=== PATIENT | male | born 1965 | race Caucasian/White ===

== ENCOUNTER 2022-09-15 18:09 | Emergency (ER) | payer MEDICARE, SELFPAY ==
[2022-09-15] VITALS (43 sets, daily range): BP systolic 57–113; BP diastolic 29–77; PULSE 104–139; RESP 18–38; TEMP 37–38.1; O2SAT 82–98
--- NOTE | ~2022-09-15 | XR_ITS ---
EXAMINATION: XR chest 1V portable Exam Date/Time: 09/15/2022 18:35 SUSTAINABILITY PROJECT MANAGER HISTORY: congestion/COUGH X 1 WEEK Comparison: None available. RESULT: Lines, tubes, and devices: None. Lungs and pleura: Multifocal subsegmental foci of airspace disease in the left mid and lower lung. Cardiomediastinal silhouette: Unremarkable. Other: No acute osseous or upper abdominal finding. IMPRESSION: Findings suspicious for left mid/lower lung pneumonia. Reviewed, dictated and finalized at location K. AINABILITY PROJECT MANAGER
--- NOTE | ~2022-09-15 | CT_ITS ---
EXAMINATION: CT abdomen pelvis w con DATE: 09/15/2022 20:44 INDICATION: NONSPECIFIC ABD PAIN. TECHNIQUE: Computed tomography (CT) of the abdomen and pelvis was performed with 100 mL Omnipaque-350 intravenous contrast. Automated exposure control and iterative reconstruction technique were employe d. The dose-length product was 503.61 mGy-cm. COMPARISON: None. FINDINGS: Motion artifact in the upper abdomen. Lower thorax: Subsegmental areas of groundglass and consolidative opacities in the lingula and left l ower lobe. Liver: Normal. Biliary/Gallbladder: Gallbladder is absent. No bile duct dilation. Pancreas: No mass or duct dilation. Spleen: Normal. Large adjacent splenule. Adrenals:No mass. Kidneys: No mass, stone, or hydronephrosis. Mild bilateral atrophy. GI tract: Mild distal esophageal and gastric wall edema. Hyperdense wall thickening in multiple loops of proximal small bowel. General loss of haustration in the large bowel. Distal sigmoid and rectal w all hyperemia. No small or large bowel dilation. Normal appendix. Diverticulosis without diverticulit is. Mesentery/Peritoneum: No ascites, mass, or free air. Retroperitoneum: No mass. Pelvis: Mild bladder wall thickening. Right lateral ureterocele.. Soft Tissues: Soft tissues and body wall unremarkable. Bones: No acute osseous finding. IMPRESSION: Multifocal left lung pneumonia. No wall thickening and hyperemia as can be seen with acute inflammato ry bowel disease. Urinary bladder wall thickening may be secondary to cystitis or outlet compromise. Reviewed, dictated and finalized at location K. S REPRESENTATIVE MEATS IMPRESSION: Multifocal left lung pneumonia. No wall thickening and hyperemia as can be seen with acute inflammatory bowel disease. Urinary bladder wall thickening may be secondary to cystitis or outlet compromise.
[2022-09-15] MEDS: SODIUM CHLORIDE 0.9% IV 1,000 ML 999 ML IV CONT ×5 (18:45→22:30)
--- NOTE | 2022-09-15 19:30 | PC.NURSE ---
Care resumed, pt sitting and rocking in bed, anxious per report of pts sister who is at bedside. Pt is able to understand commands and will follow commands but is nonverbal. Pts BP is soft and he is currently receiving fluid boluses. Per report unknown when pt last had anything to eat or drink.
[2022-09-15 19:55] LABS: Influenza A QL RT-PCR Positive (Negative); Influenza B QL RT-PCR Negative (Negative); RSV RNA, RT-PCR Negative (Negative); SARS-CoV-2 RNA PCR Negative (Negative)
[2022-09-15 19:58] LABS: Hematocrit 38.4 % (40.0-54.0); Hemoglobin 12.6 g/dL (14.0-18.0); Immature Granulocyte Absolute 0.04 K/mm3 (0.00-0.00); Immature Granulocyte Percent A 0.9 % (0.0-0.0); Immature Platelet Fraction Pct 3.3 % (1.0-7.0); Lymphocytes Percent Auto 6.7 % (18.0-42.0); Mean Corpuscular HGB Conc 32.8 g/dL (32.0-36.0); Mean Corpuscular Hemoglobin 35.5 pg (27.0-31.0); Mean Corpuscular Volume 108.2 fL (78.0-102.0); Monocytes Absolute Auto 0.24 K/mm3 (0.10-0.90); Monocytes Percent Auto 5.4 % (2.0-11.0); Neutrophils Absolute Auto 3.9 K/mm3 (1.7-7.2); Platelet Count Result 78 K/mm3 (150-420); Red Blood Count 3.55 M/mm3 (4.70-6.10); Red Cell Distribution Width 13.3 % (11.6-14.4); White Blood Count 4.5 K/mm3 (4.8-10.8)
[2022-09-15 20:07] LABS: Lactic Acid Reflex 2.5 mmol/L (0.4-2.0)
[2022-09-15 20:14] LABS: Alanine Aminotransferase 17 U/L (16-63); Albumin Level 2.4 g/dL (3.4-5.0); Alkaline Phosphatase 90 U/L (46-116); Anion Gap 6 mmol/L (8-16); Aspartate Amino Transferase 28 U/L (15-37); Bilirubin,Total 0.4 mg/dL (0.00-1.00); Blood Urea Nitrogen 13 mg/dL (7-18); Calcium 7.4 mg/dL (8.5-10.1); Carbon Dioxide 28 mmol/L (21-32); Chloride 108 mmol/L (98-108); Estimated Glomerular Filt Rate 44; Glucose 91 mg/dL (70-99); Osmolality Calculated 294 mOsm/kg (285-295); Potassium 3.8 mmol/L (3.5-5.1); Sodium 142 mmol/L (136-145); Total Protein 5.9 g/dL (6.4-8.2)
[2022-09-15] MEDS: KETOROLAC 30 MG/ML VIAL (*BKC) IV PUSH (20:21)
[2022-09-15] MEDS: LORazepam INJ (*CRX) 2 MG/ML VIAL 0.5 MG IV PUSH (20:23)
[2022-09-15 20:33] LABS: Occult Blood Positive (Negative)
[2022-09-15] MEDS: IPRATROPIUM 0.5 MG/ALBUTEROL SULFATE 2.5 MG AMPUL.NEB 3 ML INHALATION (21:03)
--- NOTE | 2022-09-15 21:16 | PC.NURSE ---
Pts BP remains low and hypotensive. ERP Dr Goldman spoke c pts. caregier, sister and call placed to pts. parents. Need for transfer discussed and need for central line discussed, family agreeable c poc.
--- NOTE | 2022-09-15 21:50 | PC.NURSE ---
Consent signed by sister for central placement. ERP attempted placement---unsuccessful.
--- NOTE | 2022-09-15 21:59 | ED.URI ---
HPI - URI/Sore Throat General Chief Complaint: Upper Respiratory Infection Stated Complaint: bowel issue ,bleeding Time Seen by Provider: 09/15/22 18:11 Source: patient and family Mode of arrival: wheelchair Limitations: no limitations History of Present Illness HPI Narrative: this is a 57-year-old gentleman with a history of Down's syndrome presents with his sister with a 2 day history of cough congestion, the patient has not been eating or drinking over the past couple of days mother was recently diagnosed with influenza. There is some shortness of breath with no no chest pain, did have some abdominal pain with some bright red bright blood per rectum. Currently there is no nausea or vomiting has been having some diarrhea with episodes of nausea vomiting over the past day. There is no dysuria no flank pain no hematuria. Patient presents with a decreased appetite and hypotensive. MD elicited complaint: cough and nasal congestion Onset (ago): day(s) Consistency: constant Severity: severe Related Data Home Medications Medication Instructions Recorded Confirmed escitalopram oxalate 10 mg tablet 10 mg PO DAILY 09/15/22 09/15/22 (Lexapro) trazodone 100 mg tablet 100 mg PO HS 09/15/22 09/15/22 Allergies Allergy/AdvReac Type Severity Reaction Status Date / Time No Known Allergies Allergy Verified 09/15/22 18:43 Review of Systems Review of Systems: All systems reviewed & are unremarkable except as noted in HPI and below PMFSH Past Medical History Medical History Depression Down syndrome Exam Const: General: healthy appearing and ill appearing Orientation/consciousness: patient oriented x3 Limitations: behavioral limitations and language barrier HENMT: Head: normal to inspection Face/Nose/Sinus: Normal external nose present Face and sinus: normal facial exam Mouth: Yes Normal oral and palatal mucosa present Eyes: Conjunctivae: conjunctivae normal Pupils: Equal, round and reactive pupils present EOM: EOMs intact bilaterally Neck: Neck: normal visual inspection, no lymphadenopathy and no meningeal signs Chest: Chest palpation & inspection: normal inspection of the chest Resp: Effort & Inspection: normal respiratory effort Auscultation: diminished lung sounds Cardio: Rate: regular rate Rhythm: regular rhythm GI: GI Palp: Yes Soft to palpation and Yes Tenderness to palpation present (GI) : General: Yes bladder normal to palpation Back/Spine/Pelvis: Back: no CVA tenderness Skin: General skin exam: normal color Rashes: no rashes Wounds: no wounds Neuro: General: patient oriented x3 Cranial nerves: Yes Nystagmus not present Extrem: General: normal to inspection, no clubbing, cyanosis or edema and no pedal edema Psych: Affect: Anxious affect present Course Course Emergency Course: attempt was made for central line access some are numerous attempts unable to access, peripheral veins with good IV access patient received some normal saline, blood pressure has remained low at about 67/42 with a heart rate of 108 patient started on dopamine to maintain blood pressure positive stool guaiac, lactic acid 2.5 chest x-ray showed left mid and lower lobe infiltrate CT abdomen shows possible acute inflammatory bowel disease with no diverticulitis. Patient was started on ceftriaxone and azithromycin. Vital Signs Vital signs: Vital Signs Temperature 37.0 C 09/15/22 18:37 Pulse Rate 108 H 09/15/22 18:37 Respiratory Rate 18 09/15/22 18:37 Blood Pressure 67/42 L 09/15/22 18:37 Pulse Oximetry 97 09/15/22 18:37 Temperature 37.0 C 09/15/22 18:37 Pulse Rate 108 H 09/15/22 21:10 Respiratory Rate 18 09/15/22 21:10 Blood Pressure 67/42 L 09/15/22 18:37 Pulse Oximetry 90 09/15/22 21:10 Oxygen Flow Rate 5 09/15/22 21:04 MDM - URI/Sore Throat Lab Data 09/15/22 19:25 09/15/22 19:25 Labs:
--- NOTE | 2022-09-15 22:05 | PC.NURSE ---
Pts. Spo2 remains at 89% c increase of NC to 5L. Pt assited to position of comfort.
[2022-09-15] MEDS: DOPamine 400 MG/D5W 250 ML 400 MG/250 ML BAG IV CONT (22:11)
--- NOTE | 2022-09-15 22:45 | PC.NURSE ---
Pts sister wishes transfer to [facility] if possible, call will be made in attempt to find placement. POC discussed c pts. sister.
[2022-09-15 22:50] LABS: Reflex Lactic Acid Yes or No Add Lactic
--- NOTE | 2022-09-15 23:01 | ECG_ITS ---
Measurements Intervals [place] Rate: 134 P: 45 NC: 152 QRS: 73 QRSD: 96 T: 48 QT: 300 QTc: 449 Interpretive Statements SINUS TACHYCARDIA WITH OCCASIONAL SUPRAVENTRICULAR PREMATURE COMPLEXES NONSPECIFIC ST & T-WAVE ABNORMALITY ABNORMAL RHYTHM ECG NO PREVIOUS ECG AVAILABLE FOR COMPARISON Electronically Signed On 09-16-2022 8:48:11 [employer]IME SCENE INVESTIGATOR by Sreekanth Castaneda M.D.
--- NOTE | 2022-09-15 23:10 | PC.NURSE ---
Pt sitting upright in bed, placed on nonreb mask at this time. Report given to ANGELLA Woodall.
--- NOTE | 2022-09-15 23:42 | PC.NURSE ---
2300 report from juan jose reid. resumed care of patient. 2315 patient placed on NRB mask. did not want on . patient removed. 2330 patient placed on hi-flow cannula at 10 L per pulmonary staff. pt tolerating. sapo2 @ 98%. 2345 patient resting per cot. head of bed elevated. call stoner in reach. sister at bedside with patient. sapo2 detector to right earlobe. warm blankets applied to bilateral hands. digits are cool to touch. lights dimmed for comfort.
[2022-09-15 23:50] LABS: Lactic Acid 2.2 mmol/L (0.4-2.0)
[2022-09-16] VITALS (32 sets, daily range): BP systolic 69–106; BP diastolic 30–76; PULSE 121–137; RESP 17–26; TEMP 37.9–38; O2SAT 90–100
--- NOTE | 2022-09-16 02:06 | PC.NURSE ---
0025 multiple attempt to call other facilities for transfer availability. 0100 pt agitated regarding tv channels are not the same as at home. sister elizabeth is at bedside with pt. reassurance given to pt. 0150 report to ANGELLA oro at [facility]. awaiting [facility] arrival.
== END 2022-09-16 02:35 | disposition short-term general hospital (02) ==
PROVIDERS: Emergency Provider Emergency Medicine
DX: I95.9 Hypotension, unspecified (principal); J11.1 Influenza due to unidentified influenza virus with other respiratory manifestations; K92.2 Gastrointestinal hemorrhage, unspecified; J18.9 Pneumonia, unspecified organism; Z20.822 Contact with and (suspected) exposure to COVID-19; Q90.9 Down syndrome, unspecified
CPT/HCPCS: 36415; 71045; 74177; 80053; 83605; 85025; 85055; 86140; 87040; 87502; 87634; 93005; 94640; 96361; 96365; 96366; 96367; 96375; 99285; C1751; J0456; J0696; J1265; J1885; J2060; J7030; Q9967; U0003; U0005